=== PATIENT | female | born 1990 | race African-American/Black ===

== ENCOUNTER 2016-05-27 09:29 | Emergency (ER) | payer OTHER ==
[~2016-05-27] VITALS: Ht 149.9 cm; Wt 45.8 kg
[~2016-05-27 09:29] MED LIST: AMOXICILLIN 50500 M1 PO; APAP/CODEINE ELI5 M1 OR; NOHOMEMEDICATIONS
[2016-05-27 09:37] VITALS: BP 127/73
[2016-05-27] MEDS ORDERED: PENICILLIN V P500 MG PO (09:41)
== END 2016-05-27 10:08 | disposition home or self-care (01) ==
LOC: ER 09:29
DX: K04.7 Periapical abscess without sinus (principal); K02.9 Dental caries, unspecified